=== PATIENT | female | born 1960 | race Caucasian/White ===

== ENCOUNTER 2016-09-14 07:11 | Emergency (ER) | payer OTHER ==
[2016-09-14 08:17] LABS: BASOPHIL 0.1 % (0-2); HCT 41.3 % (37.0-47.0); HGB 14.1 g/dl (12.5-16.0); MCH 32.3 pg (25.0-31.0); MCHC 34.1 g/dL (32.0-36.0); MCV 94.7 fL (78.0-100.0); MONOCYTE 9.1 % (0-12); MPV 10.6 fL (6.0-9.5); NEUTROPHIL 59.8 % (41-80); PLT 169 K/uL (150-400); RBC 4.36 M/uL (4.20-5.40); RDW 13.1 % (11.5-14.0); WBC 8.2 K/uL (4.0-10.5)
[2016-09-14 08:42] LABS: CREATININE 0.7 mg/dL (0.5-1.0); POTASSIUM 4.2 mmol/L (3.5-5.1)
[2016-09-14 09:30] LABS: BILIRUBIN NEGATIVE (NEGATIVE); BLOOD TRACE-INTACT Ery/uL (NEGATIVE); CLARITY CLEAR (CLEAR); COLOR YELLOW (YELLOW); GLUCOSE (U) NORMAL (NORMAL); KETONE (U) NEGATIVE (NEGATIVE); LEUKOCYTES NEGATIVE Leu/uL (NEGATIVE); NITRITE NEGATIVE (NEGATIVE); PROTEIN NEGATIVE (NEGATIVE); UROBILINOGEN 0.2 mg/dL (0.2-1.0)
[2016-09-14 09:35] LABS: URINARY RBC RARE
== END 2016-09-14 09:51 | disposition home or self-care (01) ==
LOC: FER 07:11
PROVIDERS: Emergency Medicine
DX: M62.830 Muscle spasm of back (principal); M54.9 Dorsalgia, unspecified; R05 Cough; I10 Essential (primary) hypertension; F17.210 Nicotine dependence, cigarettes, uncomplicated; Z88.2 Allergy status to sulfonamides; Z79.899 Other long term (current) drug therapy
CPT/HCPCS: 36415; 71020; 72072; 80048; 81001; 85025; J1885

== ENCOUNTER 2021-01-17 11:20 | Emergency (ER) | payer OTHER ==
[~2021-01-17 11:20] MED LIST: ALLEGRA ALLERG180 MG PO; DICLOFENAC SODI75 MG PO; VENLAFAXINE HC150 MG PO; ZESTRIL2.5 MG PO
[2021-01-17 14:40] LABS: BASOPHIL 0.3 % (0-2); EOSINOPHIL 1.3 % (0-5); HCT 44.9 % (37.0-47.0); HGB 15.1 g/dl (12.5-16.0); LYMPHOCYTE 24.3 % (15-48); MCH 33.1 pg (25.0-31.0); MCHC 33.6 g/dL (32.0-36.0); MCV 98.5 fL (78.0-100.0); MONOCYTE 7.1 % (0-12); MPV 10.4 fL (6.0-9.5); NEUTROPHIL 66.7 % (41-80); NRBC 0; PLT 231 K/uL (150-400); RBC 4.56 M/uL (4.20-5.40); RDW 12.7 % (11.5-14.0); WBC 11.9 K/uL (4.0-10.5)
[2021-01-17 15:03] LABS: BUN/CREAT RATIO (CALC) 16.7 RATIO; CREATININE 0.78 mg/dL (0.51-0.95); POTASSIUM 4.3 mmol/L (3.5-5.1)
[2021-01-17] MEDS ORDERED: ROBAXIN750 MG PO (16:41)
[2021-01-17] MEDS ORDERED: NORCO 5-325 TA1 EACH PO (16:41)
[2021-01-17 16:43] LABS: BILIRUBIN NEGATIVE (NEGATIVE); BLOOD 1+ Ery/uL (NEGATIVE); CLARITY CLEAR (CLEAR); COLOR YELLOW (YELLOW); GLUCOSE (U) NORMAL (NORMAL); LEUKOCYTES NEGATIVE Leu/uL (NEGATIVE); NITRITE NEGATIVE (NEGATIVE); PROTEIN NEGATIVE (NEGATIVE); UROBILINOGEN 0.2 mg/dL (0.2-1.0)
[2021-01-17 16:52] LABS: BACTERIA TRACE; URINARY RBC RARE
== END 2021-01-17 17:05 | disposition home or self-care (01) ==
LOC: FER 11:20
PROVIDERS: Emergency Medicine
DX: M54.50 Low back pain, unspecified (principal); I10 Essential (primary) hypertension; F17.200 Nicotine dependence, unspecified, uncomplicated; Z79.899 Other long term (current) drug therapy; Z91.048 Other nonmedicinal substance allergy status
CPT/HCPCS: 36415; 72100; 80048; 81001; 85025; J1885; J3490; Q9967